=== PATIENT | female | born 1995 | race Caucasian/White ===

== ENCOUNTER → 2020-06-21 | Outpatient (CLI) | payer BC ==
[2020-06-21 12:34] LABS: CREATININE SERUM 0.84 MG/DL (0.60-1.30)
[2020-06-21 21:48] LABS: HEPATITIS C ANTIBODY C Non-Reactive (Non-Reactive)
== END ==
LOC: LAB 11:03
PROVIDERS: ATTEND Obstetrics & Gynecology Reproductive Endocrinology
DX: Z01.812 Encounter for preprocedural laboratory examination (principal); Z01.83 Encounter for blood typing; Z13.29 Encounter for screening for other suspected endocrine disorder; Z13.21 Encounter for screening for nutritional disorder; Z11.3 Encounter for screening for infections with a predominantly sexual mode of transmission; Z11.8 Encounter for screening for other infectious and parasitic diseases; Z11.59 Encounter for screening for other viral diseases; Z11.9 Encounter for screening for infectious and parasitic diseases, unspecified; Z11.4 Encounter for screening for human immunodeficiency virus [HIV]; E28.2 Polycystic ovarian syndrome; N92.6 Irregular menstruation, unspecified
CPT/HCPCS: 82306; 82565; 82627; 82947; 83498; 83516; 84146; 84450; 84460; 86592; 86703; 86705; 86762; 86787; 86803; 86850; 86900; 86901; 87491; 87591; G0499; 36415; 86706

== ENCOUNTER → 2022-03-24 | Outpatient (CLI) | payer BC ==
[2022-03-24 14:15] LABS: ALBUMIN 4.4 GM/DL (3.2-4.5); POTASSIUM 3.8 MMOL/L (3.6-5.0)
[2022-03-24 14:16] LABS: CALCIUM 9.5 MG/DL (8.5-10.1)
[2022-03-24 14:17] LABS: TOTAL PROTEIN 6.8 GM/DL (6.4-8.2)
[2022-03-24 14:19] LABS: BILIRUBIN,TOTAL 0.4 MG/DL (0.1-1.0)
[2022-03-24 14:21] LABS: CREATININE SERUM 0.62 MG/DL (0.60-1.30)
[2022-03-24 21:20] LABS: HEPATITIS C ANTIBODY C Non-Reactive (Non-Reactive)
== END ==
LOC: LABNPT 13:42
PROVIDERS: ATTEND Obstetrics & Gynecology
DX: Z36.89 Encounter for other specified antenatal screening (principal)
CPT/HCPCS: 80053; 84443; 84702; 86703; 86780; 86803; 86850; 86900; 86901; 87088; 87340